=== PATIENT | male | born 1980 | race Caucasian/White ===

== ENCOUNTER 2019-01-23 04:43 | Emergency (ER) | payer BC ==
[2019-01-23 04:52] VITALS: TEMP 97.6
[2019-01-23] MEDS ORDERED: ASPIRIN 81 MG PO STA (05:11)
[2019-01-23] MEDS ORDERED: SODIUM CHLORIDE 0.9% 1,000 ML IV STA (05:11)
[2019-01-23] MEDS ORDERED: KETOROLAC 30 MG/ML 1 ML VIAL IVP STA (05:11)
--- NOTE | 2019-01-23 05:15 | ED ---
General Adult HPI - General Chief complaint: Chest Pain Stated complaint: Abd Pain Time Seen by Provider: 01/23/19 04:54 Source: patient Mode of arrival: ambulatory Limitations: no limitations - History of Present Illness Initial comments: Pérez is a previously healthy 38-year-old male who presents the emergency department today for evaluation of 2 days of tightness in his upper back and waking this morning with a feeling of muscle spasm in his right bicep and tricep. Patient denies any recent injury any heavy lifting, patient is right- hand dominant, he does have a job that requires repetitive motion. He reports he's had muscle spasms similar to this but they usually resolve within minutes and this is been persistent for over an hour prior to arrival. Patient denies any recent nausea vomiting diarrhea or causes of dehydration. - Related Data Home Medications Medication Instructions Recorded Confirmed Ibuprofen [Motrin] 800 mg PO Q6H PRN 01/23/19 01/23/19 Losartan Potassium 100 mg PO DAILY 01/23/19 01/23/19 Nebivolol [Bystolic] 5 mg PO HS 01/23/19 01/23/19 Omeprazole 20 mg PO DAILY PRN 01/23/19 01/23/19 Previous Rx's Medication Instructions Recorded Ibuprofen [Motrin] 800 mg PO TID #30 tab 01/23/19 Lidocaine 5% Patch [Lidoderm] 1 patch TOPICAL DAILY #30 patch 01/23/19 Methocarbamol [Robaxin-750] 750 mg PO TID #30 tablet 01/23/19 Allergies Allergy/AdvReac Type Severity Reaction Status Date / Time Penicillins Allergy Unknown Verified 01/23/19 07:32 Childhood Review of Systems ROS Statement: Those systems with pertinent positive or pertinent negative responses have been documented in the HPI. ROS Other: All systems not noted in ROS Statement are negative. Past Medical History Past Medical History: Hypertension Additional Past Medical History / Comment(s): tachycardia History of Any Multi-Drug Resistant Organisms: None Reported Past Surgical History: No Surgical Hx Reported Past Psychological History: No Psychological Hx Reported Smoking Status: Current every day smoker Past Alcohol Use History: Rare Past Drug Use History: None Reported General Exam - General Exam Comments Initial Comments: Physical Exam GENERAL: Patient is well-developed and well-nourished. HENT: Normocephalic, Atraumatic. EYES: PERRL, EOMI PULMONARY: Unlabored respirations. No audible rales rhonchi or wheezing was noted. CARDIOVASCULAR: There is a regular rate and rhythm without any murmurs gallops or rubs. ABDOMEN: Soft and nontender with normal bowel sounds. SKIN: Skin is clear with no lesions or rashes and otherwise unremarkable. : Deferred NEUROLOGIC: Patient is alert and oriented x3. Moving all extremities spontaneously MUSCULOSKELETAL: Normal extremities with adequate strength and full range of motion. No lower extremity swelling or edema. No calf tenderness. Right trapezius hypertonicity and tenderness to the palpation PSYCHIATRIC: Normal psychiatric evaluation Limitations: no limitations Course Vital Signs 01/23/19 04:48 Temperature 97.6 F Pulse Rate 75 Respiratory 20 Rate Blood Pressure 147/97 O2 Sat by Pulse 99 Oximetry EKG Findings - EKG Comments: EKG Findings:: EKG was obtained at 501, rate is 81 rhythm is sinus is normal axis there are normal intervals there is NC 136, QRS 94 QTc is 425 there are no acute ST elevations or depressions there is no signs of acute ischemia or infarction. Medical Decision Making - Medical Decision Making 38-year-old woman presenting with right upper back pain for 2 days, acutely worse today with spasm of the right upper arm Patient with no injury no cardiac history no history of DVT PE Labs and imaging ordered EKG was nonischemic Chest x-ray unremarkable D-dimer was elevated computed tomography scan resulted with no PE and no acute findings I suspect patient's discomfort is musculoskeletal in nature he had minimal improvement with Toradol Valium was ordered. Patient will be discharged home with NSAIDs, muscle relaxers and Lidoderm. All questions pertaining care were answered return parameters were discussed patient discharged home in stable condition. - Lab Data Result diagrams: 01/23/19 05:08 01/23/19 05:08 Lab Results 01/23/19 01/23/19 01/23/19 Range/Units 05:08 05:08 05:08 WBC 12.2 H (3.8-10.6) k/uL RBC 5.30 (4.30-5.90) m/uL Hgb 16.4 (13.0-17.5) gm/dL Hct 48.6 (39.0-53.0) % MCV 91.6 (80.0-100.0) fL MCH 30.9 (25.0-35.0) pg MCHC 33.7 (31.0-37.0) g/dL RDW 12.6 (11.5-15.5) % Plt Count 239 (150-450) k/uL Neutrophils % 70 % Lymphocytes % 21 % Monocytes % 6 % Eosinophils % 2 % Basophils % 0 % Neutrophils # 8.5 H (1.3-7.7) k/uL Lymphocytes # 2.6 (1.0-4.8) k/uL Monocytes # 0.7 (0-1.0) k/uL Eosinophils # 0.2 (0-0.7) k/uL Basophils # 0.0 (0-0.2) k/uL PT 9.5 (9.0-12.0) sec INR 0.9 (<1.2) APTT 22.8 (22.0-30.0) sec D-Dimer 0.84 H (<0.60) mg/L FEU Sodium 139 (137-145) mmol/L Potassium 4.6 (3.5-5.1) mmol/L Chloride 107 (98-107) mmol/L Carbon Dioxide 22 (22-30) mmol/L Anion Gap 10 mmol/L BUN 16 (9-20) mg/dL Creatinine 0.72 (0.66-1.25) mg/dL Est GFR (CKD-EPI)AfAm >90 (>60 ml/min/1.73 sqM) Est GFR (CKD-EPI)NonAf >90 (>60 ml/min/1.73 sqM) Glucose 123 H (74-99) mg/dL Calcium 9.3 (8.4-10.2) mg/dL Magnesium 1.9 (1.6-2.3) mg/dL Total Bilirubin 0.4 (0.2-1.3) mg/dL AST 21 (17-59) U/L ALT 26 (21-72) U/L Alkaline Phosphatase 93 (38-126) U/L Creatine Kinase 57 (55-170) U/L Troponin I (0.000-0.034) ng/mL Total Protein 6.9 (6.3-8.2) g/dL Albumin 4.3 (3.5-5.0) g/dL 01/23/19 Range/Units 05:08 WBC (3.8-10.6) k/uL RBC (4.30-5.90) m/uL Hgb (13.0-17.5) gm/dL Hct (39.0-53.0) % MCV (80.0-100.0) fL MCH (25.0-35.0) pg MCHC (31.0-37.0) g/dL RDW (11.5-15.5) % Plt Count (150-450) k/uL Neutrophils % % Lymphocytes % % Monocytes % % Eosinophils % % Basophils % % Neutrophils # (1.3-7.7) k/uL Lymphocytes # (1.0-4.8) k/uL Monocytes # (0-1.0) k/uL Eosinophils # (0-0.7) k/uL Basophils # (0-0.2) k/uL PT (9.0-12.0) sec INR (<1.2) APTT (22.0-30.0) sec D-Dimer (<0.60) mg/L FEU Sodium (137-145) mmol/L Potassium (3.5-5.1) mmol/L Chloride (98-107) mmol/L Carbon Dioxide (22-30) mmol/L Anion Gap mmol/L BUN (9-20) mg/dL Creatinine (0.66-1.25) mg/dL Est GFR (CKD-EPI)AfAm (>60 ml/min/1.73 sqM) Est GFR (CKD-EPI)NonAf (>60 ml/min/1.73 sqM) Glucose (74-99) mg/dL Calcium (8.4-10.2) mg/dL Magnesium (1.6-2.3) mg/dL Total Bilirubin (0.2-1.3) mg/dL AST (17-59) U/L ALT (21-72) U/L Alkaline Phosphatase (38-126) U/L Creatine Kinase (55-170) U/L Troponin I <0.012 (0.000-0.034) ng/mL Total Protein (6.3-8.2) g/dL Albumin (3.5-5.0) g/dL Disposition Clinical Impression: Musculoskeletal pain of extremity Disposition: HOME SELF-CARE Condition: Stable Instructions (If sedation given, give patient instructions): Muscle Spasm (ED) Prescriptions: Lidocaine 5% Patch [Lidoderm] 1 patch TOPICAL DAILY #30 patch Ibuprofen [Motrin] 800 mg PO TID #30 tab Methocarbamol [Robaxin-750] 750 mg PO TID #30 tablet Is patient prescribed a controlled substance at d/c from ED?: No Referrals: Ajay Chavira DO [Primary Care Provider] - 1-2 days
[2019-01-23 05:41] LABS: Basophils % (A) 0 %; Eosinophils # (A) 0.2 k/uL (0-0.7); Eosinophils % (A) 2 %; HCT 48.6 % (39.0-53.0); HGB 16.4 gm/dL (13.0-17.5); Lymphocytes # (A) 2.6 k/uL (1.0-4.8); Lymphocytes % (A) 21 %; MCH 30.9 pg (25.0-35.0); MCHC 33.7 g/dL (31.0-37.0); MCV 91.6 fL (80.0-100.0); Mean Platelet Volume 8.2; Monocytes # (A) 0.7 k/uL (0-1.0); Monocytes % (A) 6 %; Neutrophils # (A) 8.5 k/uL (1.3-7.7); Neutrophils % (A) 70 %; Platelet Count 239 k/uL (150-450); RDW 12.6 % (11.5-15.5); WBC 12.2 k/uL (3.8-10.6)
[2019-01-23 05:54] LABS: ALT 26 U/L (21-72); AST 21 U/L (17-59); African American GFR (CKD) >90 (>60 ml/min/1.73 sqM); Albumin 4.3 g/dL (3.5-5.0); Alkaline Phosphatase 93 U/L (38-126); Anion Gap 10 mmol/L; Blood Urea Nitrogen 16 mg/dL (9-20); Calcium 9.3 mg/dL (8.4-10.2); Carbon Dioxide 22 mmol/L (22-30); Chloride 107 mmol/L (98-107); Creatine Kinase 57 U/L (55-170); Glucose 123 mg/dL (74-99); Magnesium 1.9 mg/dL (1.6-2.3); Potassium 4.6 mmol/L (3.5-5.1); Sodium 139 mmol/L (137-145); Total Bilirubin 0.4 mg/dL (0.2-1.3); Total Protein 6.9 g/dL (6.3-8.2)
[2019-01-23 05:59] LABS: INR 0.9 (<1.2); Partial Thromboplastin Time 22.8 sec (22.0-30.0); Prothrombin Time 9.5 sec (9.0-12.0)
--- NOTE | 2019-01-23 06:02 | XR ---
INDICATION: Chest pain COMPARISON: CXR 06/11/15 FINDINGS: Frontal and lateral views of the chest are obtained. The cardiomediastinal silhouette and pulmonary vascularity are within normal limits. Lungs are clear. No pleural effusion or pneumothorax. Bony elements are within normal limits. IMPRESSION: No acute cardiopulmonary disease.
[2019-01-23 06:03] LABS: D-Dimer 0.84 mg/L FEU (<0.60)
--- NOTE | 2019-01-23 07:07 | CT ---
INDICATION: Chest pain TECHNIQUE: CT acquisition is performed through the chest per institutional CT pulmonary angiogram protocol following the administration of IV contrast. Coronal and sagittal reformatted images and coronal and sagittal MIP images are provided. DOSE INFORMATION: DLP 599.8 mGy-cm. This CT exam was performed using one or more of the following dose reduction techniques: automated exposure control, adjustment of the mA and/or kV according to patient size, and/or use of iterative reconstruction technique. COMPARISON: None. FINDINGS: There is adequate opacification of the pulmonary arteries. The main pulmonary artery is normal in caliber. There is no evidence of acute pulmonary embolism. The thyroid gland is normal. There is no adenopathy. Heart size is normal. There is no pericardial effusion. There is no thoracic aortic aneurysm or dissection. There is no airspace consolidation, pleural effusion, pneumothorax, pulmonary parenchymal mass, or central endobronchial lesion. Visualized upper abdomen is unremarkable. There are no acute osseous findings. IMPRESSION: 1. No evidence of acute pulmonary embolism.
[2019-01-23] MEDS ORDERED: DIAZEPAM 5 MG TAB PO STA (07:32)
[2019-01-23 08:07] VITALS: BP 123/96; PULSE 68; RESP 18
== END 2019-01-23 08:07 | disposition home or self-care (01) ==
LOC: EC 04:43
DX: M79.621 Pain in right upper arm (principal); R79.1 Abnormal coagulation profile; M54.6 Pain in thoracic spine; I10 Essential (primary) hypertension; F17.200 Nicotine dependence, unspecified, uncomplicated; Z88.0 Allergy status to penicillin; Z79.899 Other long term (current) drug therapy; X50.3XXA Overexertion from repetitive movements, initial encounter
CPT/HCPCS: 36415; 93005; 85379; 80053; 82550; 83735; 84484; 85025; 85610; 85730; 71046; 71275; 99285; 96374; 96361; J1885; Q9967

== ENCOUNTER → 2019-07-20 | Day surgery (SDC) | payer BC ==
[2019-07-18 14:43] VITALS: BMI 31.5
--- NOTE | 2019-07-19 14:31 | HP ---
HISTORY AND PHYSICAL DATE OF SERVICE: 07/20/2019 Pérez Ramos is a 39-year-old patient seen with progressive left knee pain. We discussed treatment options. He elected to proceed with left knee arthroscopy. Consent regarding the procedure was obtained. PAST MEDICAL HISTORY: Hypertension. PAST SURGICAL HISTORY: Noncontributory. DAILY MEDICATIONS: 1. Bystolic. 2. Losartan. ALLERGIES: PENICILLIN. SOCIAL HISTORY: Denies current tobacco use. PHYSICAL EVALUATION OF THE LEFT KNEE: His range of motion 0-120. There is a mild effusion present. Tenderness medial joint line. Positive medial Emma's. Ligaments are stable. Hip rotation without pain. Distal neurovascular exam is intact. RADIOGRAPHS OF THE LEFT KNEE: Revealed mild osteoarthritic changes. A left knee MRI revealed chondromalacia. IMPRESSION: 1. Internal derangement, left knee with osteochondral tear versus meniscal tear. 2. Hypertension. PLAN: Left knee arthroscopy with partial meniscectomy, possible chondroplasty and synovectomy. MMODL / IJN: [id number] /
[~2019-07-20] MED LIST: BUPIVACAIN-EPI 0.25%-1:200,000 30 ML VIAL INTRAARTIC ONE; DEXAMETHASONE SOD PHOSPHATE 10 MG/ML 1 ML VIAL IV ONE; LACTATED RINGERS 1,000 ML IV SCH; LIDOCAINE 1% INJ 10MG/ML (20 ML MDV) ONE; MIDAZOLAM 2 MG/2 ML VIAL IV PRN; MIDAZOLAM 2 MG/2 ML VIAL ONE; ONDANSETRON 4 MG/2 ML VIAL IVP ONE; PROPOFOL 10 MG/ML 20 ML VIAL IV ONE; SCOPOLAMINE 1.5MG/72HR PATCH TRANSDERM ONE; fentaNYL (PF) 50 MCG/ML 2 ML AMP ONE
--- NOTE | 2019-07-20 11:59 | P.OP ---
Date of Procedure: 07/20/19 Preoperative Diagnosis: Internal derangement left knee Postoperative Diagnosis: 1. Tear medial meniscus left knee 2. Medial plica left knee 3. Partial ACL tear left knee 4. Reactive synovitis medial, lateral and suprapatellar compartments left knee Procedure(s) Performed: 1. Arthroscopic partial medial meniscectomy left knee 2. Arthroscopic resection medial plica left knee 3. Arthroscopic debridement partial ACL tear left knee 4. Arthroscopic partial synovectomy medial, lateral and suprapatellar compartments left knee Anesthesia: CRYSTALA, local Surgeon: Mustapha Galindo Estimated Blood Loss (ml): 5 Pathology: none sent Condition: stable Disposition: PACU Indications for Procedure: 39-year-old patient seen with progressive left knee pain. After treatment options were discussed, he elected to proceed with arthroscopy. Operative Findings: see description of procedure Description of Procedure: Patient was taken to the operative suite. Patient underwent a general anesthetic by the department of anesthesia. Patient was given preoperative antibiotics. The left lower extremity was placed in a well-padded arthroscopic leg foster. The left leg was prepped and draped in the normal sterile orthopedic fashion. A lateral parapatellar and suprapatellar incision was made. Trochars were inserted. Arthroscopy was initiated. Suprapatellar pouch revealed diffuse thick reactive synovitis. The patellofemoral joint appeared to articulate congruently. There was no chondromalacia of the patella present. The scope was guided into the medial gutter. There was a plica identified. It did impinge along the medial femoral condyle with range of motion. The scope was then guided into the medial compartment. A medial parapatellar incision was made. Trocar inserted followed by probe. There was a radial tear posterior horn medial meniscus near the area of the root area. The root itself was stable. There was grade 1, changes of the tibial plateau. There was thick reactive synovitis anteriorly. I performed a partial medial meniscectomy. I performed a partial synovectomy decompressing the reactive synovitis. There was good decompression of the synovitis. The residual meniscus was stable. I could now see some additional chondromalacia posteriorly. It was stable. Scope and probe were then guided into the intercondylar notch. The ACL was identified. It did appear to be some superficial fraying anterior laterally. Utilizing motorize shaver to debride that area. It involves about 510 percent of the fibers. The remaining fibers were very stable and was good stability overall.. The scope and probe were then guided into lateral compartment. The lateral meniscus was probed and found to be stable. There was thick reactive synovitis anteriorly. There was no chondromalacia present. I introduced a motorized shaver and performed a partial synovectomy. Shaver was removed. There was good decompression of the synovitis. The scope was in guided back into the suprapatellar compartment. I introduced a motorized shaver into the suprapatellar compartment. I debrided some piecemeal fragments of meniscus I encountered. I resected that plica. I performed a partial synovectomy. Shaver was removed. I now could visualize the area resected plica. There was no impingement on the medial femoral condyle with complete resection of plica. There was good decompression of the synovitis. Instruments were now removed from the joint. The joint was infiltrated with .25% Marcaine. Steri-Strips were applied to the portal sites. Sterile dressings were applied. The patient was placed into a BRITTANI hose. No tourniquet was utilized. The patient was awakened, transferred to a bed and taken to recovery stable satisfactory condition.
[2019-07-20 12:00] VITALS: TEMP 96.9
[2019-07-20] MEDS: HYDROmorphone 0.5 MG/0.5 ML SYRINGE IVP PRN ×2 (12:23→12:28)
[2019-07-20 13:18] VITALS: BP 127/71; PULSE 71; RESP 18
== END | disposition home or self-care (01) ==
LOC: OR 09:07
PROVIDERS: ATTEND Orthopaedic Surgery
DX: M23.322 Other meniscus derangements, posterior horn of medial meniscus, left knee (principal); M67.52 Plica syndrome, left knee; M23.8X2 Other internal derangements of left knee; M65.862 Other synovitis and tenosynovitis, left lower leg; M94.262 Chondromalacia, left knee; I10 Essential (primary) hypertension; R00.0 Tachycardia, unspecified; K21.9 Gastro-esophageal reflux disease without esophagitis; Z88.0 Allergy status to penicillin; Z79.899 Other long term (current) drug therapy; Z87.891 Personal history of nicotine dependence; Z79.1 Long term (current) use of non-steroidal anti-inflammatories (NSAID); Z98.890 Other specified postprocedural states
CPT/HCPCS: 29881; J2250; J1100; J0690; J2405; J2001; J3010; J2704; J1170

== ENCOUNTER 2020-08-22 10:43 | Day surgery (SDC) | payer BC ==
[2020-08-15 13:04] VITALS: BMI 32.3
[~2020-08-22 10:43] MED LIST changes: -BUPIVACAIN-EPI 0.25%-1:200,000 30 ML VIAL INTRAARTIC ONE; -DEXAMETHASONE SOD PHOSPHATE 10 MG/ML 1 ML VIAL IV ONE; +DEXAMETHASONE SOD PHOSPHATE 4 MG/ML 1 ML VIAL IV ONE; +HEPARIN SODIUM,PORCINE 5,000 UNIT/ML 1 ML VIAL SQ PRN; +HYDROmorphone 0.5 MG/0.5 ML SYRINGE IVP PRN; +LIDOCAINE 1% (10MG/ML) FOR IV START INTRADERMA PRN; -LIDOCAINE 1% INJ 10MG/ML (20 ML MDV) ONE; -MIDAZOLAM 2 MG/2 ML VIAL ONE; -PROPOFOL 10 MG/ML 20 ML VIAL IV ONE; -SCOPOLAMINE 1.5MG/72HR PATCH TRANSDERM ONE; -fentaNYL (PF) 50 MCG/ML 2 ML AMP ONE
[2020-08-22] MEDS ORDERED: NEOSTIGMINE 1 MG/ML 10 ML VIAL ONE (12:24)
[2020-08-22] MEDS ORDERED: MIDAZOLAM 2 MG/2 ML VIAL ONE (12:24)
[2020-08-22] MEDS ORDERED: GLYCOPYRROLATE 0.2 MG/ML 2 ML VIAL ONE (12:24)
[2020-08-22] MEDS ORDERED: PROPOFOL 10 MG/ML 20 ML VIAL IV ONE (12:24)
[2020-08-22] MEDS ORDERED: fentaNYL (PF) 50 MCG/ML 2 ML AMP ONE (12:24)
[2020-08-22] MEDS ORDERED: SUCCINYLCHOLINE CHLORIDE 100 MG/5 ML SYR IV ONE (12:24)
[2020-08-22] MEDS ORDERED: HYDROmorphone (PF) 1 MG/ML ONE (12:24)
[2020-08-22] MEDS ORDERED: LIDOCAINE 1% INJ 10MG/ML (20 ML MDV) ONE (12:24)
[2020-08-22] MEDS ORDERED: ROCURONIUM 10 MG/ML (10 ML VIAL) IV ONE (12:24)
[2020-08-22] MEDS ORDERED: LIDOCAINE 1%-EPI 1:100,000 20 ML VIAL SQ ONE ×3 (12:48)
[2020-08-22] MEDS ORDERED: LACTATED RINGERS 1,000 ML IV ONE (13:09)
--- NOTE | 2020-08-22 13:38 | P.OP ---
Date of Procedure: 08/22/20 Preoperative Diagnosis: Umbilical hernia Postoperative Diagnosis: Umbilical hernia Procedure(s) Performed: Robotic umbilical hernia repair with mesh Anesthesia: MARYAM Surgeon: Rosa Maria Lao Pathology: none sent Condition: stable Disposition: same day Indications for Procedure: 40-year-old male presented to the surgery clinic with complaints of umbilical pain. He has been diagnosed with an umbilical hernia. Risks, benefits and alternatives to the procedure were provided to the patient. The patient did provide consent prior to attending the operating suite. Operative Findings: Umbilical hernia defect with preperitoneal fat Description of Procedure: The patient was brought to the operating suite and placed in supine position. General anesthetic with endotracheal intubation was performed as per anesthesia team. The right arm was tucked against the body and a footboard was applied. Chlorhexidine was used to prep the skin followed by application of sterile drapes. A timeout was performed to verify correct patient and correct procedure. Patient was confirmed to receive perioperative IV antibiotics, bilateral SCDs and 5000 units of subcutaneous heparin for DVT prophylaxis. A 5 mm skin incision was made along the left midaxillary line at the palmers point and the abdomen was entered under direct visualization using a Visiport. Pneumoperitoneum was achieved. The umbilical hernia was clearly visualized. An additional 8 mm trocar was placed in left lower abdomen and a 12 mm trocar was placed in the left mid abdomen. The initial 5 m trocar was upsized to an 8 mm trocar. The da Alana robot was undocked. The 30 robotic camera was used. A robotic prograsp and monopolar scissors were inserted through the 8 mm robotic trochars. The hernia defect contained preperitoneal fat which was reduced using gentle traction and countertraction method along with cautery. The false for ligament was divided using monopolar scissors close to the anterior abdominal wall to create a landing zone for the mesh. The [employer] system circular mesh was rolled and introduced to the abdominal cavity via the 12 mm trocar. The hernia defect was closed primarily with a running suture using OV lock by taking one 7 m bite on the fascia on either side of the defect. A Narayan-Vinita device was inserted through the middle of the hernia defect and the stay suture on the mesh was grasped to elevate the mesh against the anterior abdominal wall. The mesh was circumferentially sutured to the peritoneum of the anterior abdominal wall using 20V lock without any folds or kinks. The robot was then undocked. Laparoscopic 30 camera was reinserted. All trocar sites were examined. No evidence of bleeding. The 12 mm trocar site was closed using 2 transfer fascial sutures of 0 Vicryl which were placed using a Narayan-Vinita device. The pneumoperitoneum was evacuated and all skin incisions were closed using 4-0 Monocryl suture followed by Dermabond glue. The sponge, instrument and needle count were correct 2. Abdominal binder was applied. The patient was expanded and taken to postanesthesia care unit in stable condition.
[2020-08-22 13:58] VITALS: TEMP 98.5
[2020-08-22 14:49] VITALS: RESP 16
[2020-08-22 15:45] VITALS: BP 136/78; PULSE 79
== END 2020-08-22 15:49 | disposition home or self-care (01) ==
LOC: OR 10:43
PROVIDERS: ATTEND Surgery
DX: K42.9 Umbilical hernia without obstruction or gangrene (principal); K64.8 Other hemorrhoids; I10 Essential (primary) hypertension; F17.210 Nicotine dependence, cigarettes, uncomplicated; Z98.890 Other specified postprocedural states; Z79.899 Other long term (current) drug therapy; Z88.0 Allergy status to penicillin; Z88.5 Allergy status to narcotic agent; Z83.79 Family history of other diseases of the digestive system; Z82.61 Family history of arthritis
CPT/HCPCS: 49652; S2900

== ENCOUNTER → 2020-08-26 | Outpatient (CLI) | payer BC ==
--- NOTE | 2020-08-26 16:05 | US ---
EXAMINATION TYPE: US venous doppler duplex LE DATE OF EXAM: 08/26/2020 3:55 PM COMPARISON: NONE CLINICAL HISTORY: M79.89 Leg swelling. Four days post op for umbilical hernia repair; c/o bilateral a nkle edema. Bilateral leg swelling. SIDE PERFORMED: Bilateral TECHNIQUE: The lower extremity deep venous system is examined utilizing real time linear array sonog dylon with graded compression, doppler sonography and color-flow sonography. VESSELS IMAGED: Common Femoral Vein Deep Femoral Vein Greater Saphenous Vein * Femoral Vein Popliteal Vein Small Saphenous Vein * Proximal Calf Veins (* superficial vessels) Right Leg: Negative for DVT Left Leg: Negative for DVT Grayscale, color doppler, spectral doppler imaging performed of the deep veins of the bilateral lower extremities. There is normal flow, compressibility, vascular waveforms. IMPRESSION: No ultrasound evidence for acute DVT in either lower extremity. Symmetric moderate subcu taneous edema noted at level of the bilateral ankles on images saved.
== END | disposition home or self-care (01) ==
LOC: RADUSWWP 15:18
PROVIDERS: ATTEND Surgery
DX: R60.0 Localized edema (principal)
CPT/HCPCS: 93970

== ENCOUNTER 2020-09-08 13:22 | Emergency (ER) | payer BC ==
[2020-09-08 13:26] VITALS: TEMP 98.6
[2020-09-08] MEDS ORDERED: MORPHINE SULFATE 4 MG/ML SYRINGE IV STA (13:47)
[2020-09-08] MEDS ORDERED: SODIUM CHLORIDE 0.9% 1,000 ML IV STA (13:47)
[2020-09-08] MEDS ORDERED: ONDANSETRON 4 MG/2 ML VIAL IVP STA (13:47)
[2020-09-08 14:43] VITALS: RESP 18
[2020-09-08 14:51] LABS: Basophils % (A) 0 %; Eosinophils # (A) 0.2 k/uL (0-0.7); Eosinophils % (A) 2 %; HCT 49.4 % (39.0-53.0); HGB 16.7 gm/dL (13.0-17.5); Lymphocytes # (A) 2.1 k/uL (1.0-4.8); Lymphocytes % (A) 23 %; MCH 31.5 pg (25.0-35.0); MCHC 33.9 g/dL (31.0-37.0); MCV 93.1 fL (80.0-100.0); Mean Platelet Volume 9.2; Monocytes # (A) 0.6 k/uL (0-1.0); Monocytes % (A) 7 %; Neutrophils % (A) 65 %; Platelet Count 236 k/uL (150-450); RDW 12.6 % (11.5-15.5); WBC 9.2 k/uL (3.8-10.6)
--- NOTE | 2020-09-08 14:53 | ED ---
General Adult HPI <Alphonso Balderas J - Last Filed: 09/08/20 15:52> - General Source: patient Mode of arrival: ambulatory Limitations: no limitations <Sonja Ralph - Last Filed: 09/08/20 16:00> - General Chief complaint: Recheck/Abnormal Lab/Rx Stated complaint: post op abd pain Time Seen by Provider: 09/08/20 13:27 - History of Present Illness Initial comments: Patient is a 40-year-old male presenting to the emergency Department with complaints of abdominal pain that has been increasing over the past 5 days. Patient is 17 days postop of umbilical hernia repair by Dr. Lao. Patient states he was doing well, he even just had a checkup with Dr. Lao on Wednesday, his incisions looked well, he was progressing as expected. Patient states that next day, he was sitting down to put on his shoe when he turns slightly and suddenly had a very sharp, searing pain near his belly button. Patient states it took his breath away. Patient states this pain has continued over the past few days and has been increasing as well. He is also having some left-sided abdominal pain as well. Patient states he did call Dr. Lao's office and they recommended resting, ibuprofen for discomfort. Has been trying this but things are progressively getting worse. He is having regular bowel movements, he is passing gas. He denies any fever or chills. He does feel some mild nausea but no vomiting, no diarrhea. He denies any other abdominal surgeries in the past. Patient has no further complaints at this time. Upon arrival to the ER, patient is in mild distress, holding abdomen, a slight tachycardia at 102, hypertensive 175/103, rest of vitals are normal. (Sonja Ralph) - Related Data Home Medications Medication Instructions Recorded Confirmed Losartan Potassium 100 mg PO QAM 01/23/19 09/08/20 Nebivolol [Bystolic] 5 mg PO HS 01/23/19 09/08/20 Omeprazole 20 mg PO BID 01/23/19 09/08/20 Ibuprofen [Motrin] 800 mg PO TID PRN 08/15/20 09/08/20 Albuterol Sulfate [Ventolin HFA] 2 puff INHALATION RT-Q4H PRN 09/08/20 09/08/20 Previous Rx's Medication Instructions Recorded HYDROcodone/APAP 5-325MG [[place] 1 tab PO Q6HR PRN 3 Days #12 tab 09/08/20 5-325] Allergies Allergy/AdvReac Type Severity Reaction Status Date / Time Penicillins Allergy Unknown Verified 09/08/20 14:25 Childhood tramadol [From Ultram] AdvReac Hallucinati Verified 09/08/20 14:25 ons Review of Systems ROS Other: All systems not noted in ROS Statement are negative. <Alphonso Balderas - Last Filed: 09/08/20 15:52> ROS Other: All systems not noted in ROS Statement are negative. <Sonja Ralph - Last Filed: 09/08/20 16:00> ROS Statement: Those systems with pertinent positive or pertinent negative responses have been documented in the HPI. Past Medical History Past Medical History: Hypertension Additional Past Medical History / Comment(s): tachycardia, umbilical hernia History of Any Multi-Drug Resistant Organisms: None Reported Past Surgical History: Hernia Repair, Orthopedic Surgery Additional Past Surgical History / Comment(s): left knee scope, sx on tendons in fingers Past Anesthesia/Blood Transfusion Reactions: Previous Problems w/ Anesthesia Past Psychological History: No Psychological Hx Reported Smoking Status: Current every day smoker Past Alcohol Use History: None Reported Past Drug Use History: Marijuana - Past Family History Mother Family Medical History: Unable to Obtain Additional Family Medical History / Comment(s): does not know a lot of family history <Sonja Ralph - Last Filed: 09/08/20 16:00> General Exam Limitations: no limitations <Sonja Ralph - Last Filed: 09/08/20 16:00> - General Exam Comments Initial Comments: GENERAL: Patient is well-developed and well-nourished. Patient is nontoxic and in moderate distress, slightly diaphoretic. HEAD: Atraumatic, normocephalic. EYES: Pupils equal round and reactive to light, extraocular movements intact, sclera anicteric, conjunctiva are normal. Eyelids were unremarkable. ENT: TMs normal, nares patent, oropharynx clear without exudates. Moist mucous membranes. NECK: Normal range of motion, supple without lymphadenopathy or JVD. LUNGS: Unlabored respirations. Breath sounds clear to auscultation bilaterally and equal. No wheezes rales or rhonchi. HEART: Regular rate and rhythm without murmurs, rubs or gallops. ABDOMEN: Patient is guarding, tender near his umbilical area, left side of his abdomen as well. Hypoactive bowel sounds. No masses appreciated. : Deferred MUSCULOSKELETAL: Normal extremities with adequate strength and normal range of motion, no pitting or edema. No clubbing or cyanosis. NEUROLOGICAL: Patient is alert and oriented x 3. Motor and sensory are also intact. Cranial nerves II through XII grossly intact. Symmetrical smile. Normal speech, normal gait. PSYCH: Normal mood, normal affect. SKIN: Warm, Dry, normal turgor, no rashes. Abdominal incisions look clean, dry, intact. No signs of infection. No erythema. (Sonja Ralph) Course Vital Signs 09/08/20 09/08/20 09/08/20 13:23 14:25 15:00 Temperature 98.6 F Pulse Rate 102 H 75 70 Respiratory 22 18 18 Rate Blood Pressure 175/103 141/84 118/78 O2 Sat by Pulse 99 97 97 Oximetry Medical Decision Making - Lab Data Result diagrams: 09/08/20 14:01 09/08/20 14:01 <Alphonso Balderas - Last Filed: 09/08/20 15:52> - Lab Data Result diagrams: 09/08/20 14:01 09/08/20 14:01 <Sonja Ralph - Last Filed: 09/08/20 16:00> - Medical Decision Making The patient is seen and examined. He is 17 days postop umbilical hernia. He started having pain 5 days ago in the periumbilical region. The pain is primarily just superior to the umbilicus. On exam, there is no evidence of reherniation. There is some moderate tenderness just superior to the umbilicus. Abdomen is otherwise soft. Laboratory is negative. The CT does not show any acute process. Case is discussed with Dr. Haji and she feels comfortable sending the patient home and he is to call tomorrow for an appointment for as soon as possible with Dr. Lao. He also will be put on a short course of [place]. I have discussed the case with the PA and agree with the findings as documented above. (Alphonso Balderas) Patient is a 40-year-old male here for increasing abdominal pain over the last 5 days. Patient is 17 days postop of umbilical hernia repair by Dr. Lao. Patient was in moderate distress upon arrival, slightly tachycardia, hypertensive. Tender around the umbilical area as well as a left-sided abdomen. Labs are stable, lactic acid slightly up at 2.3. CT does not show any evidence of any acute process. Patient was given fluids, pain control. He has been resting complaining the ER. On reexamination, patient is still complaining of some mild to moderate pain. His vital signs are stable now. We discussed case with Dr. Haji he was comfortable with patient being sent home. I will give patient a few tablets of [place] for more severe pain. He will call his surgeon's office tomorrow morning for follow-up. Patient is stable for discharge. Patient is in agreement with this plan of care. Return parameters were discussed with the patient and they verbalized understanding. Case discussed with Dr. Balderas. (Sonja Ralph) - Lab Data Lab Results 09/08/20 09/08/20 09/08/20 Range/Units 14:01 14:01 14:01 WBC 9.2 (3.8-10.6) k/uL RBC 5.30 (4.30-5.90) m/uL Hgb 16.7 (13.0-17.5) gm/dL Hct 49.4 (39.0-53.0) % MCV 93.1 (80.0-100.0) fL MCH 31.5 (25.0-35.0) pg MCHC 33.9 (31.0-37.0) g/dL RDW 12.6 (11.5-15.5) % Plt Count 236 (150-450) k/uL MPV 9.2 Neutrophils % 65 % Lymphocytes % 23 % Monocytes % 7 % Eosinophils % 2 % Basophils % 0 % Neutrophils # 6.0 (1.3-7.7) k/uL Lymphocytes # 2.1 (1.0-4.8) k/uL Monocytes # 0.6 (0-1.0) k/uL Eosinophils # 0.2 (0-0.7) k/uL Basophils # 0.0 (0-0.2) k/uL PT 9.8 (9.0-12.0) sec INR 0.9 (<1.2) APTT 21.3 L (22.0-30.0) sec Sodium 137 (137-145) mmol/L Potassium 4.8 (3.5-5.1) mmol/L Chloride 105 (98-107) mmol/L Carbon Dioxide 21 L (22-30) mmol/L Anion Gap 11 mmol/L BUN 14 (9-20) mg/dL Creatinine 0.84 (0.66-1.25) mg/dL Est GFR (CKD-EPI)AfAm >90 (>60 ml/min/1.73 sqM) Est GFR (CKD-EPI)NonAf >90 (>60 ml/min/1.73 sqM) Glucose 105 H (74-99) mg/dL Plasma Lactic Acid [place] (0.7-2.0) mmol/L Calcium 10.1 (8.4-10.2) mg/dL Total Bilirubin 0.7 (0.2-1.3) mg/dL AST 29 (17-59) U/L ALT 34 (4-49) U/L Alkaline Phosphatase 89 (38-126) U/L Total Protein 7.9 (6.3-8.2) g/dL Albumin 4.7 (3.5-5.0) g/dL Amylase 62 (30-110) U/L Lipase 146 (23-300) U/L Urine Color Urine Appearance (Clear) Urine pH (5.0-8.0) Ur Specific [place] (1.001-1.035) Urine Protein (Negative) Urine Glucose (UA) (Negative) Urine Ketones (Negative) Urine Blood (Negative) Urine Nitrite (Negative) Urine Bilirubin (Negative) Urine Urobilinogen (<2.0) mg/dL Ur Leukocyte Esterase (Negative) 09/08/20 09/08/20 Range/Units 14:43 15:10 WBC (3.8-10.6) k/uL RBC (4.30-5.90) m/uL Hgb (13.0-17.5) gm/dL Hct (39.0-53.0) % MCV (80.0-100.0) fL MCH (25.0-35.0) pg MCHC (31.0-37.0) g/dL RDW (11.5-15.5) % Plt Count (150-450) k/uL MPV Neutrophils % % Lymphocytes % % Monocytes % % Eosinophils % % Basophils % % Neutrophils # (1.3-7.7) k/uL Lymphocytes # (1.0-4.8) k/uL Monocytes # (0-1.0) k/uL Eosinophils # (0-0.7) k/uL Basophils # (0-0.2) k/uL PT (9.0-12.0) sec INR (<1.2) APTT (22.0-30.0) sec Sodium (137-145) mmol/L Potassium (3.5-5.1) mmol/L Chloride (98-107) mmol/L Carbon Dioxide (22-30) mmol/L Anion Gap mmol/L BUN (9-20) mg/dL Creatinine (0.66-1.25) mg/dL Est GFR (CKD-EPI)AfAm (>60 ml/min/1.73 sqM) Est GFR (CKD-EPI)NonAf (>60 ml/min/1.73 sqM) Glucose (74-99) mg/dL Plasma Lactic Acid [place] 2.3 H* (0.7-2.0) mmol/L Calcium (8.4-10.2) mg/dL Total Bilirubin (0.2-1.3) mg/dL AST (17-59) U/L ALT (4-49) U/L Alkaline Phosphatase (38-126) U/L Total Protein (6.3-8.2) g/dL Albumin (3.5-5.0) g/dL Amylase (30-110) U/L Lipase (23-300) U/L Urine Color Yellow Urine Appearance Clear (Clear) Urine pH 5.5 (5.0-8.0) Ur Specific [place] 1.020 (1.001-1.035) Urine Protein Negative (Negative) Urine Glucose (UA) Negative (Negative) Urine Ketones Negative (Negative) Urine Blood Negative (Negative) Urine Nitrite Negative (Negative) Urine Bilirubin Negative (Negative) Urine Urobilinogen <2.0 (<2.0) mg/dL Ur Leukocyte Esterase Negative (Negative) Disposition <Alphonso Balderas - Last Filed: 09/08/20 15:52> Is patient prescribed a controlled substance at d/c from ED?: Yes When asked, does pt state using other controlled substances?: No If prescribed controlled substance>3 days was MAPS reviewed?: Prescribed <3 Days If opioid is for acute pain is fill amount 7 days or less?: Yes If Rx opioid, was Start Talking consent form obtained?: Yes <Sonja Ralph - Last Filed: 09/08/20 16:00> Clinical Impression: Abdominal pain Disposition: HOME SELF-CARE Condition: Stable Instructions (If sedation given, give patient instructions): Abdominal Pain (ED) Additional Instructions: Please return to the Emergency Department if symptoms worsen or any other co ncerns. Continue with ibuprofen for pain, may take [place]'s for more severe pain. Use a pillow for abdominal support when having a bowel movement or with coughing. Follow up with your surgeon tomorrow as discussed. Prescriptions: HYDROcodone/APAP 5-325MG [[place] 5-325] 1 tab PO Q6HR PRN 3 Days #12 tab PRN Reason: Pain Referrals: Ajay Chavira DO [Primary Care Provider] - 1-2 days
--- NOTE | 2020-09-08 14:55 | CT ---
EXAMINATION TYPE: CT abdomen pelvis w con DATE OF EXAM: 09/08/2020 COMPARISON: None HISTORY: abdominal pain post-op hernia repair CT DLP: 2046.8 mGycm Automated exposure control for dose reduction was used. CONTRAST: Performed with IV Contrast, patient injected with 100 mL of Isovue 300. There is mild subsegmental atelectasis at the lung bases. There is no pleural effusion. Heart size is normal. There is no pericardial effusion. Stomach is intact. Liver spleen pancreas gallbladder appea r intact. Bile ducts are not dilated. There is no adrenal mass. Kidneys show satisfactory contrast opacification. There is no hydronephrosi s. Ureters are not dilated. There is no retroperitoneal adenopathy. Bladder distends smoothly. There is no inguinal hernia. Appendix is not seen. There is no sign of thickened appendix. There is no mesenteric edema. There is no ascites or free air. There is no sign of a bowel obstructio n. Delayed images show normal renal excretion. There is linear density in the anterior aspect of the omental fat consistent with hernia surgery at the umbilicus. Lumbar vertebra have normal alignment. Posterior elements are intact. Disc spaces are normal. Bony pe lvis is intact. Hip joints are intact. There is acetabular subchondral cyst formation. IMPRESSION: No significant abnormality.
[2020-09-08 14:56] LABS: Appearance,Urine Clear (Clear); Bilirubin,Urine Negative (Negative); Blood,Urine Negative (Negative); Color,Urine Yellow; Glucose,Urine (UA) Negative (Negative); Ketones,Urine Negative (Negative); Leukocyte Esterase,Urine Negative (Negative); Nitrite,Urine Negative (Negative); PH, Urine 5.5 (5.0-8.0); Protein,Urine Negative (Negative); Urobilinogen,Urine <2.0 mg/dL (<2.0)
[2020-09-08 15:02] LABS: ALT 34 U/L (4-49); AST 29 U/L (17-59); African American GFR (CKD) >90 (>60 ml/min/1.73 sqM); Albumin 4.7 g/dL (3.5-5.0); Alkaline Phosphatase 89 U/L (38-126); Amylase 62 U/L (30-110); Anion Gap 11 mmol/L; Blood Urea Nitrogen 14 mg/dL (9-20); Calcium 10.1 mg/dL (8.4-10.2); Carbon Dioxide 21 mmol/L (22-30); Chloride 105 mmol/L (98-107); Glucose 105 mg/dL (74-99); Lipase 146 U/L (23-300); Non-African American GFR(CKD) >90 (>60 ml/min/1.73 sqM); Potassium 4.8 mmol/L (3.5-5.1); Sodium 137 mmol/L (137-145); Total Bilirubin 0.7 mg/dL (0.2-1.3); Total Protein 7.9 g/dL (6.3-8.2)
[2020-09-08 15:10] LABS: INR 0.9 (<1.2); Prothrombin Time 9.8 sec (9.0-12.0)
[2020-09-08 15:13] LABS: Partial Thromboplastin Time 21.3 sec (22.0-30.0)
[2020-09-08 16:12] VITALS: BP 125/82; PULSE 73
== END 2020-09-08 16:08 | disposition home or self-care (01) ==
LOC: EC 13:22
DX: R10.33 Periumbilical pain (principal); R00.0 Tachycardia, unspecified; I10 Essential (primary) hypertension; F17.200 Nicotine dependence, unspecified, uncomplicated; Z79.899 Other long term (current) drug therapy; Z88.0 Allergy status to penicillin; Z88.6 Allergy status to analgesic agent
CPT/HCPCS: 36415; 80053; 82150; 83605; 83690; 85025; 85610; 85730; 81003; 74177; 99284; 96374; 96375; 96361; J2270; J2405; Q9967

== ENCOUNTER → 2021-11-04 | Outpatient (CLI) | payer BC ==
--- NOTE | 2021-11-04 16:12 | XR ---
EXAMINATION TYPE: XR chest 2V DATE OF EXAM: 11/04/2021 COMPARISON: Chest x-ray 01/23/2019 HISTORY: Chronic cough TECHNIQUE: Frontal and lateral views of the chest are obtained. FINDINGS: There is no focal air space opacity, pleural effusion, or pneumothorax seen. The cardiac silhouette size is within normal limits. Stable eventration of right hemidiaphragm and left hemidiaph ragm is noted. Prominent lung volume may be indicative of underlying COPD. The osseous structures are intact. IMPRESSION: No acute cardiopulmonary process.
== END | disposition home or self-care (01) ==
LOC: RADXRMAIN 14:42
PROVIDERS: ATTEND Family Medicine
DX: R05.3 Chronic cough (principal)
CPT/HCPCS: 71046

== ENCOUNTER → 2023-03-22 | Outpatient (CLI) | payer BC ==
[2023-03-23 04:59] LABS: Toxoplasma Antibody (IgG) <3.0 IU/mL (<7.2); Toxoplasma Antibody (IgM) <3.0 AU/mL (<8.0)
[2023-03-23 13:38] LABS: Angiotensin-1 Converting Enz. 46 U/L (8-52)
== END | disposition home or self-care (01) ==
LOC: LABWHC1 16:17
PROVIDERS: ATTEND Ophthalmology
DX: H20.013 Primary iridocyclitis, bilateral (principal)
CPT/HCPCS: 36415; 82164; 86611; 86777; 86778; 86780